=== PATIENT | male | born 1945 | race Caucasian/White ===

== ENCOUNTER 2017-11-27 10:54 | Outpatient (CLI) | payer OTHER | END 2017-11-27 10:58 | disposition home or self-care (01) | LOC: NUCLEAR 10:54 | DX: I87.2 Venous insufficiency (chronic) (peripheral) (principal) ==

== ENCOUNTER 2017-11-30 09:49 | Outpatient (CLI) | payer OTHER | END 2017-11-30 10:10 | disposition home or self-care (01) | LOC: NUCLEAR 09:49 | DX: I70.213 Atherosclerosis of native arteries of extremities with intermittent claudication, bilateral legs (principal) ==